=== PATIENT | female | born 1960 | race African-American/Black ===

== ENCOUNTER 2025-06-05 13:33 | Outpatient (CLI) | payer OTHER | END 2025-06-05 13:34 | disposition home or self-care (01) | LOC: CSHCT 13:33 | PROVIDERS: ATTEND Family Medicine | DX: R42 Dizziness and giddiness (principal); R20.2 Paresthesia of skin; Z86.73 Personal history of transient ischemic attack (TIA), and cerebral infarction without residual deficits; R94.02 Abnormal brain scan | CPT/HCPCS: 70450 ==